=== PATIENT | male | born 2000 | race Caucasian/White ===

== ENCOUNTER 2019-11-22 18:29 | Emergency (ER) | payer OTHER | END 2019-11-22 21:19 | disposition short-term general hospital (02) | LOC: ED 18:29 | DX: S92.521B Displaced fracture of middle phalanx of right lesser toe(s), initial encounter for open fracture (principal); S92.421B Displaced fracture of distal phalanx of right great toe, initial encounter for open fracture; S92.531B Displaced fracture of distal phalanx of right lesser toe(s), initial encounter for open fracture; S92.351B Displaced fracture of fifth metatarsal bone, right foot, initial encounter for open fracture; V22.4XXA Motorcycle driver injured in collision with two- or three-wheeled motor vehicle in traffic accident, initial encounter | CPT/HCPCS: 73590; 73630; 80053; 85025; 90471; 90715; 96374; 96375; 96376; 99285-25; J0690; J1170; J7030 ==